=== PATIENT | male | born 1995 | race African-American/Black ===

== ENCOUNTER 2020-02-07 08:45 | Emergency (ER) | payer OTHER, SELFPAY ==
[2020-02-07 09:01] VITALS: BP 113/68; PULSE 70; RESP 16; TEMP 36.8; O2SAT 100
--- NOTE | 2020-02-07 09:01 | ED.GENADULT ---
HPI - General Adult General Chief complaint: Ear Stated complaint: ear pain Time Seen by Provider: 02/07/20 09:01 Source: patient and RN notes reviewed Mode of arrival: ambulatory Limitations: no limitations History of Present Illness HPI narrative: 24-year-old -[place] male presents with complaints of right ear tenderness for the past 2 days. Cleaned ear with an q-tip with alcohol on it without relief. Tenderness started after using another person earbuds per Rudy. Denies swimming or getting water into ear. Denies trouble hearing. Denies URI symptoms, No high fevers or chills. Denies injury to the ear. No nasal drainage and congestion. Denies nausea, vomiting, tinnitus, and dizziness. The patient reports they have not been diagnosed with COVID-19. The patient reports they are not waiting for the results of a COVID-19 lab test. The patient reports they do not have fever, chills, weakness, fatigue, myalgia, or facial swelling. The patient reports they do not have a new or worsening cough or shortness of breath. Denies chest pain. The patient reports they do not have any rhinorrhea, congestion, sore throat, nausea, vomiting, abdominal pain, and diarrhea. Tolerating po intake well. Denies recent traveling. Denies concerns for COVID-19 or exposures been home since [id number] order except for essential household needs, working, and return home. At this time, patient is not suspected of having COVID-19. Some parts of this dictation were generated by voice recognition software and may contain typographical and/or grammatical inaccuracies. Related Data Allergies Allergy/AdvReac Type Severity Reaction Status Date / Time No Known Allergies Allergy Verified 05/25/15 15:51 Review of Systems Review of Systems: Narrative: CONSTITUTIONAL: Denies fever, chills, sweats. EYES: Denies visual changes, redness, discharge. ENT: Denies rhinorrhea, congestion, sore throat, ear drainage and itching. Complains of RT otalgia. CARDIOVASCULAR: Denies chest pain, palpitations, edema. RESPIRATORY: Denies dyspnea, wheezing, cough. GASTROINTESTINAL: Denies abdominal pain, nausea, vomiting, diarrhea. GENITOURINARY: Denies dysuria, hematuria, abnormal discharge. SKIN: Denies rash or itching. MUSCULOSKELETAL: Denies acute back pain, joint pain, or myalgia. NEUROLOGIC: Denies numbness or focal weakness. PSYCHIATRIC: Denies anxiety or depression. All systems reviewed & are unremarkable except as noted in HPI and below. [facility] Past Medical History Medical History (Updated 02/08/20 @ 00:00 by Aby Proctor) No significant past medical history Surgical History Surgical History (Updated 02/07/20 @ 09:08 by LUIS CARLOS Salazar) No significant past surgical history Family History Family History (Updated 02/07/20 @ 09:09 by LUIS CARLOS Salazar) Father Alive and well Mother Alive and well Grandparent Diabetes mellitus Social History Social History (Updated 02/07/20 @ 10:11 by LUIS CARLOS Salazar) Smoking status: Light tobacco smoker Tobacco type: cigarettes Second hand tobacco smoke exposure: No Alcohol intake: current Alcohol use details: occasional Substance use: current Substance use type: marijuana Living arrangements: with family Gender identity (if verbalized by the patient): Male Comments At time of signature, I have reviewed and agree with nursing past medical, surgical, social, and family history. Please see nursing chart for further information. There is no relevant family history pertinent to the presenting complaint. Exam Narrative: Exam Narrative: GENERAL: This is a well-nourished, well-developed patient, in no apparent distress. Talks in full sentences and ambulates with steady gait without dyspnea HEAD: normocephalic, atraumatic. EYES: PERRL. Sclera clear/white. Vision is grossly intact. EARS: Pinna is normal shape and contour. RT ear with mild-moderate erythema and swelling blaise
== END 2020-02-07 09:37 | disposition home or self-care (01) ==
PROVIDERS: Emergency Provider Nurse Practitioner Family; PCP Internal Medicine
DX: H61.23 Impacted cerumen, bilateral (principal); H60.501 Unspecified acute noninfective otitis externa, right ear
CPT/HCPCS: 69210; 99213; A9270; G0463

== ENCOUNTER 2020-07-20 09:32 | Emergency (ER) | payer OTHER, SELFPAY ==
[2020-07-20] VITALS (37 sets, daily range): BP systolic 77–121; BP diastolic 45–77; PULSE 47–82; RESP 0–28; TEMP 36.1; O2SAT 95–100
--- NOTE | ~2020-07-20 | XR_ITS ---
EXAMINATION: XR chest 1V portable DATE: 07/20/2020 10:46 INDICATION: Seizure TECHNIQUE: frontal view of the chest was obtained. COMPARISON: Chest radiograph dated 09/26/2019 FINDINGS: The lungs remain clear with no focal airspace opacities, pulmonary edema, pleural effusion or pneumot horax. The cardiomediastinal silhouette is normal. Visualized bones and soft tissues are unremarkable . IMPRESSION: 1. Normal chest radiograph. Reviewed, dictated and finalized at location B. IMPRESSION: 1. Normal chest radiograph.
--- NOTE | ~2020-07-20 | CT_ITS ---
EXAMINATION: CT brain wo con DATE: 07/20/2020 10:44 INDICATION: Seizure. Frontal headache. TECHNIQUE: Computed tomography (CT) of the head was performed without intravenous contrast. The mA wa s adjusted according to patient size. Iterative reconstruction technique was employed. The dose-lengt h product was 605.33 mGy-cm. COMPARISON: None FINDINGS: There is no intracranial hemorrhage, acute infarction, or abnormal intracranial mass lesion . The ventricles are normal in size. The orbits are normal. The paranasal sinuses are clear. The mast oid air cells are normal. IMPRESSION: 1. Normal brain. Reviewed, dictated and finalized at location A. IMPRESSION: 1. Normal brain.
--- NOTE | 2020-07-20 10:07 | ECG_ITS ---
Measurements Intervals [place] Rate: 62 P: 38 SD: 172 QRS: 79 QRSD: 90 T: 19 QT: 392 QTc: 400 Interpretive Statements SINUS RHYTHM WITH SINUS ARRHYTHMIA MINIMAL Q WAVES- DIFFUSE LEADS ST ELEVATION IN ANTEROLAT/HIGH LAT LEADS, PROBABLY EARLY REPOLARIZATION NONSPECIFIC T-WAVE ABNORMALITY- INFERIOR LEADS BORDERLINE ECG Electronically Signed On 07-20-2020 10:36:48 CDT by Ian Dietrich D.O.
--- NOTE | 2020-07-20 10:23 | ED.SYNCOPE ---
HPI - Syncope General Chief Complaint: Syncope Stated Complaint: SYNCOPE Time Seen by Provider: 07/20/20 10:06 Source: patient Mode of arrival: ambulatory Limitations: no limitations History of Present Illness HPI narrative: Patient is a 24-year-old male who presents after having 2 syncopal episodes with seizure-like activity this morning presents per EMS patient notes that the symptoms began shortly after waking patient does not recall the incident patient notes that he is otherwise felt fine with no similar occurrence in the past patient is accompanied by his mother patient lives with a roommate and notes over the last day he was helping someone move. Patient on arrival is in no distress resting comfortably alert and oriented to person place. Patient notes mild headache. Patient was reportedly postictal after the events. Patient does not take any medications. Patient denies alcohol intoxication or other drug use and notes he uses recreational marijuana which she used yesterday patient denies having used any substances today. Patient has had emesis since the incident Related Data Allergies Allergy/AdvReac Type Severity Reaction Status Date / Time No Known Allergies Allergy Verified 07/20/20 09:48 Review of Systems Review of Systems: All systems reviewed & are unremarkable except as noted in HPI and below PMFSH Past Medical History Medical History No significant past medical history Surgical History Surgical History No significant past surgical history Family History Family History (Updated 02/07/20 @ 09:09 by LUIS CARLOS Salazar) Father Alive and well Mother Alive and well Grandparent Diabetes mellitus Social History Social History Smoking status: Light tobacco smoker Tobacco type: cigarettes Second hand tobacco smoke exposure: No Alcohol intake: current Substance use: current Substance use type: marijuana Gender identity (if verbalized by the patient): Male Exam Narrative: Exam Narrative: GENERAL: Well-appearing, well-nourished, and in no acute distress. HEAD: Normocephalic, atraumatic. EYES: PERRLA and EOMI. ENT: Nares clear, no rhinorrhea or epistaxis. Mucous membranes moist. Oropharynx without tonsillar hypertrophy exudate or other lesions. NECK: Supple. No adenopathy or masses. CHEST: Clear to auscultation. No respiratory distress. No wheezes rales or rhonchi HEART: Regular rate and rhythm. No murmur heard. Normal peripheral pulses. ABDOMEN: Soft, nontender, nondistended EXTREMITIES: Normal range of motion. No edema. SKIN: Warm, dry, no rash. NEURO: No focal deficits. Alert and oriented x3. Normal speech. Cranial nerves II through XII grossly intact. Motor and sensory intact and symmetrical in the extremities PSYCH: Normal mood and affect. Course Course Emergency Course: Patient in the room in no distress feeling much better alert and oriented x3 will be discharged home with family aware of discussion and recommendations neurology was given Keppra in the emergency department will be sent home on Keppra with plan follow-up with neurology and primary care and is felt appropriate for outpatient reevaluation provided with reasons to return Consultations Consultation #1: Discussed case with neurology Dr. Lamb who would like the patient to be loaded with Keppra given driving restrictions to be started on Keppra at home and the following the neuro clinic Date: 07/20/20 Time: 13:03 Vital Signs Vital signs: Vital Signs Temperature 97 F L 07/20/20 09:36 Pulse Rate 82 07/20/20 09:36 Respiratory Rate 24 H 07/20/20 09:36 Blood Pressure 121/68 07/20/20 09:36 Pulse Oximetry 100 07/20/20 09:36 Temperature 97 F L 07/20/20 09:36 Pulse Rate 55 L 07/20/20 12:05 Respiratory Rate 20 07/20/20 12:0
[2020-07-20 10:27] LABS: Glucose Point of Care 84 (65-105)
[2020-07-20 10:30] LABS: Alveolar/Arterial O2 Gradient 9.8 mmHg; Base Excess ABG 1.7 mEq/l (+/-2.0); Device ROOM AIR; Fractional Inspired Oxygen 21 %; HCO3 ABG 26.6 mEq/l (22.0-26.0); Oxygen Content ABG 18.9 %vol (16.0-22.0); Oxygen Saturation ABG 96.8 % (95.0-100.0); Oxyhemoglobin 94.2 % THb (90.0-100.0); PO2 ABG 88.4 mmHg (80.0-100.0); PO2 FiO2 Ratio Arterial Blood 4.21 %; Site Drawn LEFT BRACHIAL; Total Hemoglobin 14.2 g/dL (12.0-18.0)
[2020-07-20 10:33] LABS: Basophils Percent Auto 0.1 % (0.2-1.2); Eosinophils Percent Auto 0.3 % (0-4.4); Hematocrit 39.3 % (42.0-52.0); Hemoglobin 13.5 g/dL (14.0-18.0); Immature Granulocyte Absolute 0.01 K/mm3 (0.00-0.031); Immature Granulocyte Percent A 0.1 % (0-0.5); Lymphocytes Absolute Auto 0.73 K/mm3 (0.9-3.2); Lymphocytes Percent Auto 10.5 % (18.3-44.2); Mean Corpuscular HGB Conc 34.4 g/dl (32-36); Mean Corpuscular Hemoglobin 30.8 pg (26-34); Mean Corpuscular Volume 89.7 fl (80-100); Mean Platelet Volume 9.9 fl (7.4-10.4); Monocytes Absolute Auto 0.3 K/mm3 (0.1-0.6); Monocytes Percent Auto 4.3 % (2.6-8.5); Neutrophils Absolute Auto 5.9 K/mm3 (1.3-6.7); Neutrophils Percent Auto 84.7 % (45.5-73.1); Platelet Count Result 230 k/mm3 (150-375); Red Blood Count 4.38 M/mm3 (4.6-6.20); Red Cell Distribution Width 13.1 % (11.5-14.5)
[2020-07-20 10:43] LABS: INR 1.1; Prothrombin Time 13.8 Seconds (11.1-14.7)
[2020-07-20 10:44] LABS: Lactic Acid Reflex 0.9 mmol/L (0.7-2.1); Partial Thromboplastin Time 24.6 SECONDS (22.3-36.8)
[2020-07-20 10:45] LABS: Alanine Aminotransferase 17 U/L (4-50); Albumin Level 4.5 g/dL (3.5-5.1); Alkaline Phosphatase 59 U/L (38-126); Anion Gap 7 mmol/L (8-16); Aspartate Amino Transferase 29 U/L (17-59); Bilirubin,Total 1.3 mg/dL (0.2-1.3); Blood Urea Nitrogen 16 mg/dL (9-20); Calcium 9.3 mg/dL (8.4-10.2); Carbon Dioxide 28 mmol/L (22-30); Chloride 102 mmol/L (98-107); Creatine Kinase 251 U/L (55-170); Estimated CRCL calculation 143 ml/min; Estimated Glomerular Filt Rate > 60; Glucose 114 mg/dL (75-110); Magnesium 2.2 mg/dL (1.6-2.3); Phosphorus 2.1 mg/dL (2.5-4.5); Potassium 4.1 mmol/L (3.4-5.0); Sodium 137 mmol/L (137-145)
[2020-07-20] MEDS: SODIUM CHLORIDE 0.9% IV 1,000 ML 999 ML IV CONT (11:27)
[2020-07-20] MEDS: ONDANSETRON INJ 4 MG/2 ML VIAL IV PUSH (11:55)
[2020-07-20 12:05] LABS: Add Urine Microscopic? NO; Appearance Urine Clear (Clear); Bilirubin Urine Negative (Negative); Blood Urine Negative (Negative); Color Urine Yellow (Yellow); Glucose Urine UA Negative (Negative); Ketones Urine Negative (Negative); Leukocyte Esterase Ur Negative LEU/UL (Negative); Nitrate Urine Negative (Negative); Protein Urine Negative (Negative); Specific Grav Ur 1.018 (1.001-1.035); Urobilinogen Urine Negative mg/dL (<2.0)
[2020-07-20 12:22] LABS: Amphetamine Screen Urine Negative (Negative); Barbiturate Screen Urine Negative (Negative); Benzodiazepines Screen Urine Negative (Negative); Cannabinoid Screen Urine Positive (Negative); Cocaine Screen Urine Negative (Negative); Methadone Screen Urine Negative (Negative); Opiate Screen Urine Negative (Negative); Phencyclidine Screen Urine Negative (Negative)
[2020-07-20] MEDS: levETIRAcetam 1000MG/NACL100ML 1,000 MG/100 ML BAG 400 MG IVPB (12:50)
--- NOTE | 2020-07-20 13:36 | PC.NURSE ---
Asya still infusing, not able to discharge pt. Pt. resting quietly, no acute distress.
== END 2020-07-20 15:15 | disposition home or self-care (01) ==
PROVIDERS: Emergency Medicine Emergency Medical Services; Emergency Provider Emergency Medicine; PCP Internal Medicine
DX: R56.9 Unspecified convulsions (principal); F17.210 Nicotine dependence, cigarettes, uncomplicated
CPT/HCPCS: 36415; 36600; 70450; 71045; 80053; 80307; 81003; 82550; 82805; 82948; 83605; 83735; 84100; 85025; 85610; 85730; 93005; 96361; 96365; 96366; 96375; 99284; J1953; J2405; J7030